=== PATIENT | male | born 1950 | race Caucasian/White ===

== ENCOUNTER → 2016-10-13 | Outpatient (REF) ==
[~2016-10-13] MED LIST: ASPIRIN 81M81 MG/TA2 PO; DAILY MULTI VIT1 TAB PO; MIRALAX PA17 GM/Dose PO; MOTRIN 600600 MG/TAB PO; PEPCID 20MG TAB20 MG PO; PERCOCET 325 MG1 TA2 PO; PRILOSEC 20MG20 MG PO; TYLENOL 325MG325 MG PO; ZOFRAN ORAL4 MG/5 ML PO
== END ==
LOC: WSOH 12:58 → WSPT 14:45
DX: Z02.89 Encounter for other administrative examinations (principal)

== ENCOUNTER → 2016-10-16 | Outpatient (REF) | LOC: WSOH 15:30 | DX: Z02.89 Encounter for other administrative examinations (principal) ==

== ENCOUNTER → 2016-10-23 | Outpatient (REF) | LOC: WSOH 14:08 | DX: Z11.1 Encounter for screening for respiratory tuberculosis (principal) ==

== ENCOUNTER 2017-02-21 12:44 | Emergency (ER) | payer MEDICARE ==
[2004-09-05 14:58] VITALS: BP 136/81
[~2017-02-21] VITALS: Ht 182.9 cm; Wt 81.4 kg
[2017-02-21 12:58] VITALS: TEMP 98.1
[2017-02-21] MEDS ORDERED: PERCOCET 325 MG1 TA2 PO (14:05)
[2017-02-21 14:15] VITALS: BP 148/83; PULSE 58
== END 2017-02-21 14:48 | disposition home or self-care (01) ==
LOC: COL.ER 12:44
DX: S22.42XA Multiple fractures of ribs, left side, initial encounter for closed fracture (principal); Z79.82 Long term (current) use of aspirin; W01.198A Fall on same level from slipping, tripping and stumbling with subsequent striking against other object, initial encounter
CPT/HCPCS: J2270

== ENCOUNTER → 2020-06-08 | Outpatient (CLI) | payer MEDICARE | LOC: COL.RAD 05-27 13:30 | DX: R07.81 Pleurodynia (principal) ==

== ENCOUNTER 2021-04-01 07:12 | Day surgery (SDC) | payer MEDICARE ==
[2004-09-05 14:58] VITALS: BP 136/81
[~2021-04-01] VITALS: Ht 182.9 cm; Wt 81.3 kg
[2021-04-01 07:34] VITALS: BP 145/76; PULSE 52; TEMP 96.8
[2021-04-01 09:00] VITALS: BP 112/63; PULSE 50
--- NOTE | 2021-04-01 09:00 | NUR ---
Pt to GI [facility] 6 via cart from [facility]. Pt ambulates to recliner with stand by assist. Pt denies pain or nausea. Apple sauce and orange juice given per pt request. in room. Call light within reach.
[2021-04-01 09:15] VITALS: BP 125/88; PULSE 45
--- NOTE | 2021-04-01 09:15 | NUR ---
Pt continues to rest. Tolerating food and fluids without difficulties. Will continue to monitor.
[2021-04-01 09:30] VITALS: BP 137/79; PULSE 44
--- NOTE | 2021-04-01 09:30 | NUR ---
Pt continues to rest. Call light within reach.
--- NOTE | 2021-04-01 09:40 | NUR ---
IV site discontinued with all parts intact. Discharge instructions reviewed. Pt voices understanding. Pt up to dress. Call light within reach.
--- NOTE | 2021-04-01 09:50 | NUR ---
Pt escorted to private car via wheel chair. Pt accompanied home by his .
== END 2021-04-01 09:50 | disposition home or self-care (01) ==
LOC: SDCO 07:12
DX: Z12.11 Encounter for screening for malignant neoplasm of colon (principal); D64.9 Anemia, unspecified; E78.5 Hyperlipidemia, unspecified; G62.9 Polyneuropathy, unspecified
CPT/HCPCS: G0121; J2704; J7120

== ENCOUNTER 2023-11-18 15:30 | Emergency (ER) | payer MEDICARE ==
[~2023-11-18] VITALS: Ht 185.4 cm; Wt 75.0 kg
[2023-11-18 15:37] VITALS: TEMP 98
[2023-11-18 16:04] VITALS: BP 136/82
[2023-11-18] MEDS ORDERED: Cephalexin 500 MG CAP PO ONE (17:15)
[2023-11-18] MEDS ORDERED: Home HYDROcodone/Acetaminophen 5/325 MG #4 TABS/PACK PO ONE (17:15)
[2023-11-18] MEDS ORDERED: NORCO 325 MG-51 TAB PO (17:23)
[2023-11-18] MEDS ORDERED: CEPHALEXIN500 M1 PO (17:24)
[2023-11-18 17:50] VITALS: PULSE 67
== END 2023-11-18 17:50 | disposition other institution (70) ==
LOC: COL.ER 15:30
DX: S62.633A Displaced fracture of distal phalanx of left middle finger, initial encounter for closed fracture (principal); W27.0XXA Contact with workbench tool, initial encounter